=== PATIENT | female | born 1930 | race Caucasian/White ===

== ENCOUNTER 2017-08-26 21:57 | Emergency (ER) | payer OTHER ==
[~2017-08-26] VITALS: Ht 160 cm; Wt 65.0 kg
[~2017-08-26 21:57] MED LIST: AMLO5TAB2 PO; LIPI40TA PO; LISI10TA3 PO; METF500T PO
[2017-08-26 22:00] VITALS: BP 137/68; PULSE 74; RESP 16; TEMP 99.8; O2SAT 93
--- NOTE | 2017-08-26 22:39 | RADRPT ---
EXAM DATE/TIME: 08/26/2017 22:25 [place] COMPARISON: No previous studies available for comparison. INDICATIONS : Cough, flu like symptoms MEDICAL HISTORY : Hypertension. SURGICAL HISTORY : None. ENCOUNTER: Initial ACUITY: 2 weeks PAIN SCORE: 0/10 LOCATION: chest FINDINGS: A single view of the chest demonstrates the lungs to be symmetrically aerated without evidence of mas s, infiltrate or effusion. The cardiomediastinal contours are unremarkable. Osseous structures are intact. CONCLUSION: No acute cardiopulmonary disease demonstrated. Nabor Gregorio MD on August 26, 2017 at 22:36 Board Certified Radiologist. This report was verified electronically.
--- NOTE | 2017-08-26 22:48 | PD ---
HPI Chief Complaint: Cold / Flu Symptoms Time Seen by Provider: 22:19 Travel History International Travel<30 days: No Contact w/Intl Traveler<30days: No Traveled to known affect area: No History of Present Illness HPI The patient is an 87 year old female who presents to the [facility] emergency department with a history of cough and congestion that recurred today. It is associated with body aches. It first began 2 weeks ago and lasted for a week then was better until today. Her cough is productive of yellow sputum. Review of systems otherwise, the patient denies having any known recent fevers, neck pain, chest pain, shortness of breath, abdominal pain, vomiting, diarrhea, urinary symptoms, or neurologic symptoms. DR. Alvarado EVANS Past Medical History Narrative Medical The patient has a past medical history of skin cancer, hypertension, hyperlipidemia, and diabetes. Hx Anticoagulant Therapy: No Cancer: Yes (SKIN ) High Cholesterol: Yes Diabetes: Yes Patient Takes Glucophage: Yes Diminished Hearing: Yes Hypertension: Yes Influenza Vaccination: Yes Menopausal: Yes : 3 Para: 3 Past Surgical History Narrative Surgical The patient's past surgical history is significant for hand surgery trigger finger release and the below documented surgeries noted by the nursing staff. Section: Yes (x1) Eye Surgery: Yes (BILATERAL CATARACTS) Joint Replacement: Yes (RIGHT KNEE RIGHT HIP) Social History Alcohol Use: No Tobacco Use: Yes (3 cigs per day) Substance Use: No Allergies-Medications (Allergen,Severity, Reaction): Coded Allergies: No Known Allergies (Unverified Adverse Reaction, Unknown, 08/26/17) Reported Meds & Prescriptions Reported Meds & Active Scripts Active Proair Respiclick Inh (Albuterol Sulfate) 90 Mcg/Act Aerp 2 Puff INH Q4-6H PRN Zithromax (Azithromycin) 250 Mg Tab 250 Mg PO DAILY 4 Days Cefuroxime (Cefuroxime Axetil) 500 Mg Tab 500 Mg PO BID 10 Days Reported Lisinopril 10 Mg Tab 10 Mg PO DAILY Amlodipine (Amlodipine Besylate) 5 Mg Tab 5 Mg PO DAILY Metformin (Metformin HCl) 500 Mg Tab 500 Mg PO BIDPC With meals Lipitor (Atorvastatin Calcium) 40 Mg Tab 40 Mg PO HS Review of Systems Except as stated in HPI: all other systems reviewed are Neg General / Constitutional: No: Fever Eyes: No: Visual changes HENT: Positive: Congestion, No: Headaches Cardiovascular: No: Chest Pain or Discomfort Respiratory: Positive: Cough, No: Shortness of Breath Gastrointestinal: No: Abdominal Pain Genitourinary: No: Dysuria Musculoskeletal: Positive: Myalgias, No: Pain Skin: No Rash Neurologic: No: Weakness Psychiatric: No: Depression Endocrine: No: Polydipsia Hematologic/Lymphatic: No: Easy Bruising Physical Exam Narrative General: The patient is a well-developed well-nourished female in no acute distress. Head and Neck exam: Head is normocephalic atraumatic. Eyes: EOMI, pupils are equal round and reactive to light. Nose: Midline septum with erythematous edematous nasal mucosa and a clear nasal discharge Mouth: Dentition unremarkable. Moist mucus membranes. Posterior oropharynx is not erythematous. No tonsillar hypertrophy. Uvula midline. Airway patent. Neck: No palpable lymphadenopathy. No nuchal rigidity. No thyromegaly. Cardiovascular: Regular rate and rhythm without murmurs, gallops, or rubs. Lungs: Crackles are audible in the left lung base. No wheezes or rhonchi. No accessory muscle use. No paroxysmal abdominal breathing or tripoding Abdomen: Soft, without tenderness to palpation in all 4 quadrants of the abdomen. No guarding, rebound, or rigidity. Normal bowel sounds are audible. No tenderness on palpation of McBurney's point. Extremities: No clubbing, cyanosis, or edema. 2+ pulses in all 4 extremities. No calf tenderness on palpation. Back: No spinous process tenderness to palpation. No costovertebral angle tenderness to palpation. Neurologic Exam: Grossly nonfocal. Skin Exam: No rash noted. Intact skin that is warm and dry. Data Data Last Documented VS Vital Signs Date Time Temp Pulse Resp B/P (MAP) Pulse Ox O2 Delivery O2 Flow Rate FiO2 08/27/17 01:11 88 16 130/58 (82) 94 08/26/17 23:28 Room Air 08/26/17 22:00 99.8 Orders Orders Electrocardiogram (08/26/17 22:20) Complete Blood Count With Diff (08/26/17 22:20) Comprehensive Metabolic Panel (08/26/17 22:20) Creatine Kinase (Cpk) (08/26/17 22:20) Ckmb (Isoenzyme) Profile (08/26/17 22:20) Troponin I (08/26/17 22:20) B-Type Natriuretic Peptide (08/26/17 22:20) Blood Culture (08/26/17 22:20) Lipase (08/26/17 22:20) Magnesium (Mg) (08/26/17 22:20) Influenzae A/B Antigen (08/26/17 22:20) Chest, Single Ap (08/26/17 22:20) Iv Access Insert/Monitor (08/26/17 22:20) Ecg Monitoring (08/26/17 22:20) Oximetry (08/26/17 22:20) Lactic Acid Sepsis Protocol (08/26/17 22:20) Ceftriaxone Inj (Rocephin Inj) (08/27/17 00:00) Azithromycin Inj (Zithromax Inj) (08/27/17 00:00) Labs Laboratory Tests Test 08/26/17 22:30 08/26/17 22:38 White Blood Count 7.1 TH/MM3 Red Blood Count 4.02 MIL/MM3 Hemoglobin 12.8 GM/DL Hematocrit 36.8 % Mean Corpuscular Volume 91.6 FL Mean Corpuscular Hemoglobin 31.8 PG Mean Corpuscular Hemoglobin Concent 34.7 % Red Cell Distribution Width 12.9 % Platelet Count 203 TH/MM3 Mean Platelet Volume 8.6 FL Neutrophils (%) (Auto) 65.4 % Lymphocytes (%) (Auto) 23.9 % Monocytes (%) (Auto) 10.0 % Eosinophils (%) (Auto) 0.1 % Basophils (%) (Auto) 0.6 % Neutrophils # (Auto) 4.7 TH/MM3 Lymphocytes # (Auto) 1.7 TH/MM3 Monocytes # (Auto) 0.7 TH/MM3 Eosinophils # (Auto) 0.0 TH/MM3 Basophils # (Auto) 0.0 TH/MM3 CBC Comment DIFF FINAL Differential Comment Blood Urea Nitrogen 18 MG/DL Creatinine 0.76 MG/DL Random Glucose 165 MG/DL Total Protein 7.3 GM/DL Albumin 3.4 GM/DL Calcium Level 8.6 MG/DL Magnesium Level 1.5 MG/DL Alkaline Phosphatase 78 U/L Aspartate Amino Transf (AST/SGOT) 18 U/L Alanine Aminotransferase (ALT/SGPT) 17 U/L Total Bilirubin 0.6 MG/DL Sodium Level 137 MEQ/L Potassium Level 4.1 MEQ/L Chloride Level 102 MEQ/L Carbon Dioxide Level 27.9 MEQ/L Anion Gap 7 MEQ/L Estimat Glomerular Filtration Rate 72 ML/MIN Total Creatine Kinase 29 U/L Troponin I LESS THAN 0.02 NG/ML B-Type Natriuretic Peptide 110 PG/ML Lipase 64 U/L Lactic Acid Level 1.8 mmol/L MDM Medical Decision Making Medical Screen Exam Complete: Yes Emergency Medical Condition: Yes Medical Record Reviewed: Yes Interpretation(s) Last Impressions Chest X-Ray 08/26/172219 Signed Impressions: Service Date/Time: Saturday, August 26, 2017 22:25 - CONCLUSION: No acute cardiopulmonary disease demonstrated. Nabor Gregorio MD Differential Diagnosis Influenza, versus pneumonia, versus bronchitis, versus COPD Narrative Course During the course of the patients emergency department visit, the patients history, examination, and differential diagnosis were reviewed with the patient. The patient was placed on a radio artist with oximetry and frequent blood pressure monitoring. The patient had IV access obtained and blood work sent for analysis. The patient had an ECG done on arrival that shows a sinus rhythm with frequent ventricular premature complexes, no acute ST segment elevation. The patients laboratory studies were reviewed and remarkable for a white count of 7.1, hemoglobin 12.8, platelets 203 with 10.0 monos, CMP is remarkable for glucose of 165, cardiac enzymes within normal limits, BNP is 110, lipase 64, lactic acid 1.8. Radiology studies were reviewed and remarkable for a chest x-ray that shows no acute cardiopulmonary disease. Based on the patient's examination, the patient has lung congestion noted in the left lower lung base with a history of what sounds like a viral upper respiratory infection now with a superimposed bacterial infection. The patient was given Rocephin 1 g IV, Zithromax 500 IV. The patient will be discharged home on antibiotic and pro-air inhaler. The patient was instructed regarding the importance of quitting smoking. The patient is resting comfortably and feels better, is alert and in no distress. The patients results and examination findings were discussed with the patient. The repeat examination is unremarkable and benign. The history, exam, diagnostic testing, and current condition do not suggest any significant pathology to warrant further testing, continued ED treatment, admission, or surgical evaluation at this point. The vital signs have been stable. The patient does not have uncontrollable pain, intractable vomiting, or other significant symptoms. The patient's condition is stable and appropriate for discharge. The patient will pursue further outpatient evaluation with a primary care physician or other designated or consulting physician as indicated in the discharge instructions. The patient expressed understanding and was agreeable with this plan. Diagnosis Primary Impression: Bronchitis Additional Impression: Tobacco use Referrals: Primary Care Physician 2 days Patient Instructions: Acute Bronchitis (ED), General Instructions, How to Quit Using Smokeless Tobacco (ED) Med/Other Pt SpecificInfo: Prescription(s) given Scripts Albuterol Powder Inh (Proair Respiclick Inh) 90 Mcg/Act Aerp 2 PUFF INH Q4-6H Y for SHORTNESS OF BREATH, #1 INHALER 0 Refills Prov: Leelee Dow MD 08/27/17 Azithromycin (Zithromax) 250 Mg Tab 250 MG PO DAILY for Infection for 4 Days, #4 TAB 0 Refills Prov: Leelee Dow MD 08/27/17 Cefuroxime (Cefuroxime) 500 Mg Tab 500 MG PO BID for Infection for 10 Days, #20 TAB 0 Refills Prov: Leelee Dow MD 08/27/17 Disposition: 01 DISCHARGE HOME Condition: Stable Leelee Dow MD Aug 26, 2017 22:48
[2017-08-26 22:56] LABS: AUTOMATED NEUTROPHIL # 4.7 TH/MM3 (1.8-7.7); BASOPHIL % 0.6 % (0.0-2.0); EOSINOPHIL % 0.1 % (0.0-4.0); HEMATOCRIT 36.8 % (35.0-46.0); HEMOGLOBIN 12.8 GM/DL (11.6-15.3); LYMPH % 23.9 % (9.0-44.0); LYMPHOCYTE # 1.7 TH/MM3 (1.0-4.8); MEAN CELL VOLUME 91.6 FL (80.0-100.0); MEAN CORPUSCULAR HEMOGLOBIN 31.8 PG (27.0-34.0); MEAN CORPUSCULAR HGB CONC 34.7 % (32.0-36.0); MEAN PLATELET VOLUME 8.6 FL (7.0-11.0); MONOCYTE # 0.7 TH/MM3 (0-0.9); NEUT % 65.4 % (16.0-70.0); PLATELET COUNT 203 TH/MM3 (150-450); RED BLOOD COUNT 4.02 MIL/MM3 (4.00-5.30); RED CELL DISTRIBUTION WIDTH 12.9 % (11.6-17.2); WHITE BLOOD COUNT 7.1 TH/MM3 (4.0-11.0)
[2017-08-26 23:14] LABS: ALBUMIN 3.4 GM/DL (3.4-5.0); ALT (GPT) 17 U/L (10-53); AST (GOT) 18 U/L (15-37); BICARBONATE 27.9 MEQ/L (21.0-32.0); BLOOD UREA NITROGEN 18 MG/DL (7-18); CALCIUM 8.6 MG/DL (8.5-10.1); CHLORIDE 102 MEQ/L (98-107); CREATININE 0.76 MG/DL (0.50-1.00); GLOMERULAR FILTRATION RATE 72 ML/MIN (>89); GLUCOSE,RANDOM 165 MG/DL (74-106); LIPASE 64 U/L (73-393); MAGNESIUM 1.5 MG/DL (1.5-2.5); SODIUM (NA) 137 MEQ/L (136-145)
[2017-08-26 23:18] LABS: ALKALINE PHOSPHATASE 78 U/L (45-117); TOTAL BILIRUBIN ADULT 0.6 MG/DL (0.2-1.0); TOTAL PROTEIN 7.3 GM/DL (6.4-8.2); TROPONIN I LESS THAN 0.02 NG/ML (0.02-0.05)
[2017-08-26 23:28] VITALS: BP 132/59; PULSE 89; RESP 18; O2SAT 95
[2017-08-27] MEDS ORDERED: cefTRIAXone INJ 1,000 MG in SODIUM CHLORIDE 0.9% INJ 100 ML IV ONE ×2
[2017-08-27] MEDS ORDERED: AZITHROMYCIN INJ 500 MG in SODIUM CHLOR 0.9% 250 ML INJ 250 ML IV ONE ×2
[2017-08-27] MEDS ORDERED: CEFU1TAB20 PO (01:02)
[2017-08-27] MEDS ORDERED: ZITH250T PO (01:02)
[2017-08-27] MEDS ORDERED: ALBU1AER5 INH (01:02)
[2017-08-27 01:11] VITALS: BP 130/58
--- NOTE | 2017-08-27 19:19 | EKG ---
Date Performed: 08/26/2017 Time Performed: 22:37:22 PTAGE: 87 years EKG: Sinus rhythm WITH FREQUENT VENTRICULAR PREMATURE COMPLEXES Since previous tracing, no significant change noted AB NORMAL RHYTHM ECG PREVIOUS TRACING : 12/10/2011 16.15 DOCTOR: Teodoro Solorzano Interpretating Date/Time 08/27/2017 19:17:16
== END 2017-08-27 01:32 | disposition home or self-care (01) ==
LOC: NEPC 21:57
DX: J40 Bronchitis, not specified as acute or chronic (principal); E11.9 Type 2 diabetes mellitus without complications; E78.00 Pure hypercholesterolemia, unspecified; I10 Essential (primary) hypertension; F17.210 Nicotine dependence, cigarettes, uncomplicated; Z79.84 Long term (current) use of oral hypoglycemic drugs; Z79.899 Other long term (current) drug therapy; Z85.828 Personal history of other malignant neoplasm of skin
CPT/HCPCS: 71045; 80053; 82550; 83605; 83690; 83735; 83880; 84484; 85025; 87040; 87804; 93005; 96365; 96367; 99285; J0456; J0696; J7050